=== PATIENT | female | born 1975 | race Caucasian/White ===

== ENCOUNTER 2017-01-27 08:21 | Emergency (ER) | payer BC, MEDICAID ==
[~2017-01-27] VITALS: Ht 167.6 cm; Wt 93.0 kg
[~2017-01-27 08:21] MED LIST: METF-312 PO; PRENCAP61 PO
[2017-01-27 09:00] LABS: Urine Bilirubin Negative (Negative); Urine Color Yellow (Yellow); Urine Glucose Normal (Normal); Urine Ketone Negative (Negative); Urine Mucus FEW (None Seen); Urine Nitrite Negative (Negative); Urine RBC 2 /hpf (0 - 4); Urine Squamous Epithelial Cell FEW /hpf (<5); Urine Urobilinogen Normal (Negative); Urine pH 6.5 (5.0-8.0)
[2017-01-27 09:02] LABS: Urine Blood 1+ /uL (Negative)
[2017-01-27 09:29] LABS: Basophils # (auto) 0.1 uL; Eosinophils # (auto) 0.1 uL; Eosinophils % (auto) 0.7 % (0.0-7.0); Hematocrit 39.4 % (36.0-46.0); Hemoglobin 13.1 g/dL (12.2-16.2); Lymphocytes # (auto) 3.2 uL; Lymphocytes % (auto) 32.8 % (10.0-50.0); Mean Corpuscular Hemoglobin 31.5 pg (28.0-32.0); Mean Corpuscular Hgb Conc. 33.2 g/dL (32.0-36.0); Mean Corpuscular Volume 94.9 fL (80.0-100.0); Mean Platelet Volume 6.7 fL (7.4-10.4); Monocytes # (auto) 0.6 uL; Monocytes % (auto) 6.1 % (0.0-12.0); Neutrophils # (auto) 5.9 uL; Neutrophils % (auto) 59.4 % (37.0-80.0); Platelet Count (auto) 353 10^3/uL (140-450); Red Cell Distribution Width 13.9 % (11.6-16.0); White Blood Cell 9.9 10^3/uL (4.4-10.8)
[2017-01-27] MEDS ORDERED: SODIUM CHLORIDE 0.9% 500 ML IVB ONE (09:40)
[2017-01-27] MEDS ORDERED: ONDANSETRON HCL 4 MG/2 ML VIAL IV ONE (09:45)
[2017-01-27] MEDS ORDERED: MORPHINE SULFATE 4 MG/ML SYRG IV ONE (09:45)
[2017-01-27 09:50] LABS: Albumin 3.5 g/dL (3.4-5.0); Bilirubin, Total 0.3 mg/dL (0.2-1.0); Calcium 8.7 mg/dL (8.5-10.1); Total Protein 7.4 g/dL (6.4-8.2)
[2017-01-27 10:47] VITALS: BP 139/94
== END 2017-01-27 11:08 | disposition home or self-care (01) ==
LOC: ER 08:21
DX: N39.0 Urinary tract infection, site not specified (principal); Z90.49 Acquired absence of other specified parts of digestive tract
CPT/HCPCS: 36415; 74176; 80053; 81001; 81025; 82150; 83690; 84702; 85025; 94761; 96361; 96374; 96375; 99285; J2270; J2405; J7040

== ENCOUNTER → 2017-06-13 | Day surgery (SDC) | payer BC ==
[2017-06-09 14:49] LABS: Basophils # (auto) 0 uL; Basophils % (auto) 0.3 % (0.0-2.0); CONDITION Y; Eosinophils # (auto) 0.1 uL; Eosinophils % (auto) 0.9 % (0.0-7.0); Hemoglobin 12.7 g/dL (12.2-16.2); Lymphocytes # (auto) 4.1 uL; Lymphocytes % (auto) 38.2 % (10.0-50.0); Mean Corpuscular Hemoglobin 32.1 pg (28.0-32.0); Mean Corpuscular Hgb Conc. 34.2 g/dL (32.0-36.0); Mean Corpuscular Volume 93.7 fL (80.0-100.0); Mean Platelet Volume 6.6 fL (6.9-10.8); Monocytes # (auto) 0.6 uL; Monocytes % (auto) 5.7 % (0.0-12.0); Neutrophils % (auto) 54.9 % (37.0-80.0); Platelet Count (auto) 449 10^3/uL (140-450); Red Cell Distribution Width 13.1 % (11.8-14.3); White Blood Cell 10.8 10^3/uL (4.4-10.8)
[2017-06-09 14:55] LABS: BUN/Creatinine Ratio 32.7; Calcium 9.1 mg/dL (8.5-10.1); INR 0.87 (0.9-1.15); Partial Thromboplastin Time 23.9 sec (22.64-33.71); Potassium 3.9 mmol/L (3.5-5.1); Prothrombin Time 9.5 sec (9.37-12.3)
[~2017-06-13] MED LIST changes: +HYDROmorphone HCL 2 MG/ML VL IV PRN; -METF-312 PO; +METOCLOPRAMIDE HCL 5MG/ml INJ 2ml VIAL IV ONE; +MIDAZOLAM HCL 1MG/1ML-2 ML VIAL ONE; -PRENCAP61 PO; +PROPOFOL 10 MG/ML 20 ML IV ONE; +ceFAZolin 1GM/50ML D5W 50 ML IV ONE; +fentaNYL CITRATE 100 MCG/2 ML VL ONE
[2017-06-13 11:22] VITALS: BP 128/88
== END | disposition home or self-care (01) ==
LOC: SUR 07:17
PROVIDERS: ATTEND Urology
DX: N20.0 Calculus of kidney (principal); E66.01 Morbid (severe) obesity due to excess calories; Z90.49 Acquired absence of other specified parts of digestive tract
CPT/HCPCS: 36415; 50590; 80048; 85025; 85610; 85730; 87086; J0690; J2250; J2704; J3010

== ENCOUNTER 2019-02-15 20:54 | Inpatient (IN) | payer SELFPAY ==
[~2019-02-15] VITALS: Ht 160 cm; Wt 89.0 kg
[2019-02-15 23:24] LABS: Basophils # (auto) 0 uL; Basophils % (auto) 0.2 % (0.0-2.0); Eosinophils # (auto) 0.1 uL; Eosinophils % (auto) 0.5 % (0.0-7.0); Hematocrit 32.7 % (36.0-46.0); Lymphocytes # (auto) 1.7 uL; Lymphocytes % (auto) 12.7 % (10.0-50.0); Mean Corpuscular Hemoglobin 29.8 pg (28.0-32.0); Mean Corpuscular Hgb Conc. 33.8 g/dL (32.0-36.0); Mean Corpuscular Volume 88.2 fL (80.0-100.0); Monocytes # (auto) 0.7 uL; Monocytes % (auto) 5.5 % (0.0-12.0); Neutrophils # (auto) 10.9 uL; Neutrophils % (auto) 81.1 % (37.0-80.0); Nucleated Red Blood Cells % 0.1 %; Platelet Count (auto) 338 10^3/uL (140-450); Red Cell Distribution Width 15.7 % (11.8-14.3); White Blood Cell 13.5 10^3/uL (4.4-10.8)
[2019-02-15 23:42] LABS: Albumin 2.3 g/dL (3.4-5.0); Calcium 9.1 mg/dL (8.5-10.1); Potassium 3.5 mmol/L (3.5-5.1)
[2019-02-15 23:46] LABS: BUN/Creatinine Ratio 21.2; Bilirubin, Total 0.3 mg/dL (0.2-1.0); Total Protein 7.5 g/dL (6.4-8.2)
[2019-02-15 23:46] LABS: Urine Bacteria NONE SEEN /hpf (None Seen); Urine Blood 2+ /uL (Negative); Urine Specific Gravity 1.011 (1.001-1.035); Urine WBC 112 /hpf (0 - 5); Urine WBC Clumps PRESENT /hpf (None Seen)
[2019-02-16] MEDS ORDERED: SODIUM CHLORIDE 0.9% 1,000 ML IV ONE ×2 (00:45→07:57)
[2019-02-16] MEDS ORDERED: MORPHINE SULFATE 4 MG/ML SYR/VIAL IV ONE (00:45)
[2019-02-16] MEDS ORDERED: ONDANSETRON HCL 4 MG/2 ML VIAL IV ONE (00:45)
[2019-02-16] MEDS ORDERED: HYDROmorphone HCL 2 MG/ML VL IV ONE (03:30)
[2019-02-16] MEDS ORDERED: SODIUM CHLORIDE 0.9% 500 ML IVB ONE (07:57)
[2019-02-16] MEDS ORDERED: cefTRIAXone 1GM/50ML D5W 50 ML IV ONE (08:00)
[2019-02-16] MEDS ORDERED: KETOROLAC TROMETH 30 MG/ML 1ML VIAL IV ONE (08:15)
[2019-02-16] MEDS ORDERED: SODIUM CHLORIDE 0.9% 1,000 ML IV SCH (13:20)
[2019-02-16] MEDS ORDERED: NITROGLYCERIN 0.4 MG SL TAB SL PRN (13:30)
[2019-02-16] MEDS ORDERED: MORPHINE SULF INJ 2 MG/ML SYRINGE 1ML IV PRN (13:30)
[2019-02-16] MEDS ORDERED: DEXTROSE (50%) 50ML SYRG IV PRN (13:30)
[2019-02-16] MEDS ORDERED: traMADol HCL 50 MG TAB PO PRN (13:30)
[2019-02-16] MEDS ORDERED: TEMAZEPAM 15 MG CAP PO PRN (13:30)
[2019-02-16] MEDS ORDERED: ENOXAPARIN SOD 40 MG/0.4 ML SYRINGE SC ONE (14:00)
--- NOTE | 2019-02-16 14:19 | NUR ---
Telemetry admit from ER AVINASH CANALES admitted to Telemetry unit. Patient oriented to SUSAN LY RN primary RN, unit, room, bed, and unit policies regarding patient care and visiting hours. Patient now on continuous telemetry monitoring. Patient placed on bedside oxygen, weighed by bedscale and encouraged to call if they need something. All questions and concerns addressed, patient verbalized understanding.
[2019-02-16 14:40] VITALS: BP 144/85
[2019-02-16] MEDS: HYDROmorphone HCL 2 MG/ML VL IV PRN ×2 (15:05→20:17)
[2019-02-16] MEDS: SODIUM CHLORIDE 0.9% 1,000 ML IV SCH (15:06)
[2019-02-16 16:07] VITALS: BP 136/84
[2019-02-16] MEDS: ACCU-CHEK COMFORT CURVE STRIP VI SCH (17:48)
[2019-02-16 18:15] VITALS: BP 144/85
--- NOTE | 2019-02-16 18:45 | NUR ---
Re: Urology Consult Urologist called. Reviewed labs and imaging with doctor. to see patient tomorrow.
--- NOTE | 2019-02-16 19:00 | NUR ---
Closing Shift Note Patient is resting in bed. Family at bedside. Patient denies pain and shows no signs or symptoms of distress. Will endorse care to the cath lab nurse RN.
--- NOTE | 2019-02-16 19:05 | NUR ---
Opening Shift Note Assumed care of patient, awake and alert.Family on bedside No S/S of distress/SOB or pain. Instructed on POC and to call for assist PRN, will continue to monitor for changes Q1hr and PRN.
[2019-02-16 20:00] VITALS: BP 132/76
[2019-02-16 21:54] VITALS: BP 132/76
[2019-02-17] MEDS: HYDROmorphone HCL 2 MG/ML VL IV PRN ×5 (00:38→22:05)
[2019-02-17] MEDS: SODIUM CHLORIDE 0.9% 1,000 ML IV SCH ×3 (01:16→20:45)
[2019-02-17 04:58] VITALS: BP 137/81
[2019-02-17 05:43] LABS: Basophils # (auto) 0 uL; Basophils % (auto) 0.3 % (0.0-2.0); Eosinophils # (auto) 0.1 uL; Eosinophils % (auto) 0.6 % (0.0-7.0); Hematocrit 27.9 % (36.0-46.0); Hemoglobin 9.3 g/dL (12.2-16.2); Lymphocytes # (auto) 2.1 uL; Mean Corpuscular Hemoglobin 29.2 pg (28.0-32.0); Mean Corpuscular Hgb Conc. 33.3 g/dL (32.0-36.0); Mean Corpuscular Volume 87.6 fL (80.0-100.0); Monocytes # (auto) 1.3 uL; Monocytes % (auto) 11.1 % (0.0-12.0); Neutrophils # (auto) 8.6 uL; Platelet Count (auto) 287 10^3/uL (140-450); Red Blood Cells 3.18 10^6/uL (4.0-5.20); White Blood Cell 12.1 10^3/uL (4.4-10.8)
[2019-02-17 05:48] LABS: Albumin 1.8 g/dL (3.4-5.0); Potassium 3.3 mmol/L (3.5-5.1)
[2019-02-17] MEDS: PROMETHAZINE HCL 25 MG/ML 1ML IV PRN (05:54)
[2019-02-17 05:55] LABS: BUN/Creatinine Ratio 15.2; Bilirubin, Total 0.3 mg/dL (0.2-1.0); Total Protein 6.1 g/dL (6.4-8.2)
[2019-02-17] MEDS: ACETAMINOPHEN 500 MG TAB PO PRN ×2 (05:55→20:24)
[2019-02-17] MEDS: ACCU-CHEK COMFORT CURVE STRIP VI SCH ×4 (06:00→17:09)
--- NOTE | 2019-02-17 08:10 | NUR ---
Opening Shift Note Assumed care of patient, alert and oriented x 4. No S/S of distress/SOB or chest pain. IV 20g to left AC asymptomatic and intact with NS running at 100 ml/hr. Bed rails up x 2 for safety and call light placed within reach. Instructed on POC and to call for assist PRN, will continue to monitor for changes Q1hr and PRN.
[2019-02-17 08:43] VITALS: BP 129/80
[2019-02-17] MEDS: cefTRIAXone 1GM/50ML D5W 50 ML IV SCH (09:05)
[2019-02-17 10:16] LABS: Hematocrit 30.6 % (36.0-46.0); Hemoglobin 10.1 g/dL (12.2-16.2)
--- NOTE | 2019-02-17 11:15 | NUR ---
ROUNDS Dr Serrano At bedside for rounds, no new orders received at this time. Patient updated on plan of care, verbalized understanding.
[2019-02-17 13:57] VITALS: BP 127/63
[2019-02-17] MEDS: PANTOPRAZOLE 40 MG TAB PO SCH (14:01)
[2019-02-17] MEDS: ENOXAPARIN SOD 40 MG/0.4 ML SYRINGE SC SCH (14:01)
[2019-02-17 15:22] LABS: Hematocrit 28.4 % (36.0-46.0); Hemoglobin 9.4 g/dL (12.2-16.2)
[2019-02-17 17:00] VITALS: BP 161/76
--- NOTE | 2019-02-17 19:13 | NUR ---
Care endorsed to ABBY Christiansen.
[2019-02-17 22:00] VITALS: BP 122/62
[2019-02-17 22:28] LABS: Hematocrit 27.2 % (36.0-46.0); Hemoglobin 8.9 g/dL (12.2-16.2)
[2019-02-18] MEDS: HYDROmorphone HCL 2 MG/ML VL IV PRN ×5 (04:07→22:28)
[2019-02-18] MEDS: ACETAMINOPHEN 500 MG TAB PO PRN ×2 (04:17→17:27)
[2019-02-18 05:00] VITALS: BP 138/83
[2019-02-18] MEDS: ACCU-CHEK COMFORT CURVE STRIP VI SCH ×3 (06:00→12:26)
[2019-02-18 06:13] LABS: Hematocrit 27.4 % (36.0-46.0); Hemoglobin 9.2 g/dL (12.2-16.2); Mean Corpuscular Hemoglobin 29.4 pg (28.0-32.0); Mean Corpuscular Hgb Conc. 33.4 g/dL (32.0-36.0); Mean Corpuscular Volume 87.8 fL (80.0-100.0); Platelet Count (auto) 309 10^3/uL (140-450); Red Blood Cells 3.13 10^6/uL (4.0-5.20); Red Cell Distribution Width 15.7 % (11.8-14.3)
[2019-02-18 06:47] LABS: Blast Cells 0; Eosinophils % (manual) 0 (0-7); Myelocytes % 0; Promyelocytes % 0; Reactive Lymphocytes 0
[2019-02-18 07:48] LABS: Band Neutrophils % (manual) 3; Basophils % (manual) 1 (0.0-2.0); Lymphocytes % (manual) 12 (10.0-50.0); Metamyelocytes % 1; Monocytes % (manual) 11 (0-12)
[2019-02-18 08:00] VITALS: BP 133/79
--- NOTE | 2019-02-18 08:00 | NUR ---
Opening Shift Note Assumed care of patient, awake, alert, and oriented x4. Patient has 7/10 complaints of lower back, abdominal pain at this time, will administer pain medication per order. Patient has IV in left AC 20g running NS at 100mL/hr, patient tolerating well. Patient is on room air with no S/S of distress/SOB. Instructed on POC and to call for assist PRN, will continue to monitor for changes Q1hr and PRN. Bed in lowest locked position, call light within reach.
[2019-02-18 08:10] VITALS: BP 133/79
[2019-02-18 08:36] LABS: BUN/Creatinine Ratio 13.3; Calcium 7.9 mg/dL (8.5-10.1); Potassium 3.4 mmol/L (3.5-5.1)
[2019-02-18] MEDS: cefTRIAXone 1GM/50ML D5W 50 ML IV SCH (08:49)
[2019-02-18] MEDS: ENOXAPARIN SOD 40 MG/0.4 ML SYRINGE SC SCH (08:51)
[2019-02-18] MEDS: PANTOPRAZOLE 40 MG TAB PO SCH (08:51)
[2019-02-18] MEDS: SODIUM CHLORIDE 0.9% 1,000 ML IV SCH (08:55)
[2019-02-18] MEDS: PROMETHAZINE HCL 25 MG/ML 1ML IV PRN (08:58)
[2019-02-18 13:00] VITALS: BP 134/83
--- NOTE | 2019-02-18 14:00 | NUR ---
FIRE MANAGEMENT SPECIALIST AT BEDSIDE SUDEEP ELENA NP AT BEDSIDE. PER MD, PATIENT TO GET COLACE 100MG BID PRN AND DISCONTINUE TELE. ORDERS READ BACK AND VERIFIED.
[2019-02-18] MEDS ORDERED: DOCUSATE SOD 100 MG CAP PO PRN (15:30)
[2019-02-18] MEDS: SOD CHL 0.9%/ KCL 20MEQ 1,000 ML IV SCH (15:59)
[2019-02-18 17:02] VITALS: BP 131/70
--- NOTE | 2019-02-18 18:35 | NUR ---
END OF SHIFT PATIENT RESTING IN BED. NO S/S OF DISTRESS. INSTRUCTED PATIENT TO CALL PRN. BED IN LOWEST LOCKED POSITION, CALL LIGHT WITHIN REACH. ENDORSED CARE TO ABBY KUMAR.
[2019-02-18 22:00] VITALS: BP_SYST 128; BP_SYST 91; BP_DIAS 55; BP_DIAS 73
[2019-02-19] MEDS: SOD CHL 0.9%/ KCL 20MEQ 1,000 ML IV SCH ×3 (04:09→19:34)
[2019-02-19] MEDS: HYDROmorphone HCL 2 MG/ML VL IV PRN ×5 (04:10→20:22)
[2019-02-19 05:55] VITALS: BP 127/77
[2019-02-19 06:16] LABS: Hematocrit 27.8 % (36.0-46.0); Hemoglobin 9.3 g/dL (12.2-16.2); Mean Corpuscular Hemoglobin 29.3 pg (28.0-32.0); Mean Corpuscular Hgb Conc. 33.5 g/dL (32.0-36.0); Mean Corpuscular Volume 87.4 fL (80.0-100.0); Platelet Count (auto) 365 10^3/uL (140-450); Red Blood Cells 3.17 10^6/uL (4.0-5.20); Red Cell Distribution Width 15.5 % (11.8-14.3); White Blood Cell 13.3 10^3/uL (4.4-10.8)
[2019-02-19 06:30] LABS: Calcium 8.4 mg/dL (8.5-10.1); Potassium 3.3 mmol/L (3.5-5.1)
[2019-02-19 06:35] LABS: BUN/Creatinine Ratio 10.3
[2019-02-19 07:16] LABS: Band Neutrophils % (manual) 0; Basophils % (manual) 0 (0.0-2.0); Blast Cells 0; Eosinophils % (manual) 0 (0-7); Metamyelocytes % 0; Myelocytes % 0; Promyelocytes % 0; Reactive Lymphocytes 0
--- NOTE | 2019-02-19 07:55 | NUR ---
OPENING NOTE Assumed care of patient from NOC RNKuldip. Patient awake and alert with no S/S of distress/SOB. C/O abdominal pain 8/10 on adult pain scale, will administer prn pain medication as ordered. Instructed on POC and to call for assist PRN, verbalized understanding. Bed in lowest, locked position with side rails up x2 and call light within reach. Will continue to monitor for changes Q1hr and PRN.
[2019-02-19 08:04] LABS: Lymphocytes % (manual) 25 (10.0-50.0); Monocytes % (manual) 5 (0-12)
[2019-02-19] MEDS: PROMETHAZINE HCL 25 MG/ML 1ML IV PRN (08:11)
[2019-02-19 09:00] VITALS: BP 132/77
[2019-02-19] MEDS: PANTOPRAZOLE 40 MG TAB PO SCH (10:10)
[2019-02-19] MEDS: cefTRIAXone 1GM/50ML D5W 50 ML IV SCH (10:10)
[2019-02-19] MEDS: ENOXAPARIN SOD 40 MG/0.4 ML SYRINGE SC SCH (10:10)
[2019-02-19 13:00] VITALS: BP 134/80
[2019-02-19] MEDS ORDERED: traMADol HCL 50 MG TAB PO PRN (14:45)
[2019-02-19] MEDS ORDERED: POTASSIUM CHL 20 Meq TABLET PO ONE (14:45)
--- NOTE | 2019-02-19 16:30 | NUR ---
IV Obstructed IV removed with catheter intact. New IV access obtained, via clean sterile technique by inserting 22 gauge catheter at left forearm after 3 attempts. IV secured properly. No trauma to site. Patient tolerated well.
[2019-02-19 17:00] VITALS: BP 136/76
--- NOTE | 2019-02-19 19:18 | NUR ---
Opening Shift Note Assumed care of patient, awake and alert. No S/S of distress/SOB or pain. Pt is currently in bed with the rails up x2, bed is locked in the lowest position and the call light is within reach. Instructed on POC and to call for assist as needed. All concerns were addressed. Will continue to monitor.
--- NOTE | 2019-02-19 19:20 | NUR ---
CLOSING NOTE Endorsed care of patient to NOC Jim MORA.
[2019-02-19 22:00] VITALS: BP 135/79
[2019-02-20] MEDS: HYDROmorphone HCL 2 MG/ML VL IV PRN ×6 (00:13→22:07)
[2019-02-20 05:00] VITALS: BP 137/78
[2019-02-20 06:02] LABS: BUN/Creatinine Ratio 12.3; Calcium 8.6 mg/dL (8.5-10.1); Magnesium 1.7 mg/dL (1.6-2.6); Potassium 3.6 mmol/L (3.5-5.1)
[2019-02-20] MEDS: SOD CHL 0.9%/ KCL 20MEQ 1,000 ML IV SCH ×2 (06:13→15:08)
[2019-02-20 06:30] LABS: Hematocrit 30.3 % (36.0-46.0); Hemoglobin 9.9 g/dL (12.2-16.2); Mean Corpuscular Hemoglobin 28.7 pg (28.0-32.0); Mean Corpuscular Hgb Conc. 32.7 g/dL (32.0-36.0); Platelet Count (auto) 466 10^3/uL (140-450); Red Blood Cells 3.44 10^6/uL (4.0-5.20); Red Cell Distribution Width 15.6 % (11.8-14.3); White Blood Cell 15.4 10^3/uL (4.4-10.8)
[2019-02-20 06:32] LABS: Basophils % (manual) 0 (0.0-2.0); Blast Cells 0; Eosinophils % (manual) 0 (0-7); Metamyelocytes % 0; Myelocytes % 0; Promyelocytes % 0; Reactive Lymphocytes 0
--- NOTE | 2019-02-20 07:25 | NUR ---
Opening Shift Note Assumed care of patient, currently sleeping, easily awakened via verbal and tactile stimuli, breathing even and unlabored. No S/S of distress/SOB or pain reported at this time. Instructed on POC and to call for assist PRN, call light within reach and bed alarm on. will continue to monitor for changes Q1hr and PRN.
[2019-02-20 08:00] VITALS: BP 132/86
[2019-02-20 08:16] LABS: Band Neutrophils % (manual) 2; Lymphocytes % (manual) 20 (10.0-50.0); Monocytes % (manual) 9 (0-12)
[2019-02-20] MEDS: PANTOPRAZOLE 40 MG TAB PO SCH (08:51)
[2019-02-20] MEDS: cefTRIAXone 1GM/50ML D5W 50 ML IV SCH (08:51)
[2019-02-20] MEDS: ENOXAPARIN SOD 40 MG/0.4 ML SYRINGE SC SCH (08:51)
[2019-02-20] MEDS: ACETAMINOPHEN 500 MG TAB PO PRN (08:57)
[2019-02-20] MEDS ORDERED: SUCCINYLCHOLINE CHLORIDE 20 MG/ML 10ML VIAL IV ONE (09:44)
[2019-02-20] MEDS ORDERED: DOXAPRAM HCL 20 MG/ML 20ML VIAL INJ IV ONE (09:44)
[2019-02-20 12:00] VITALS: BP 129/78
--- NOTE | 2019-02-20 12:31 | NUR ---
AT BEDSIDE DR JANG AT BEDSIDE, DISCUSSING POC WITH PT AND FAMILY
--- NOTE | 2019-02-20 12:38 | NUR ---
Nutrition Assessment Notes please see attached link for complete assessment Est. Needs ABW [id number] kcal (20-23 kcal/kgBW), 70-84 gms pro (1.0-1.2 gms/kgBW r/t severe hypoalbuminemia). Will continue to monitor pertinent labs and reassess nutrient need prn. Addendum: 02/20/19 at [address] Amended: Links added.
[2019-02-20] MEDS ORDERED: MAGNESIUM SULFATE 1GM/100ML 100 ML IV ONE (13:15)
[2019-02-20 16:00] VITALS: BP 117/72
--- NOTE | 2019-02-20 18:00 | NUR ---
FAMILY AT BEDSIDE PT AWAKE AXOX4, , NO DISTRESS NOTED, CONT CARE
--- NOTE | 2019-02-20 20:00 | NUR ---
Opening Note Assumed pt care from day shift nurse. Pt is sitting upright in bed with no s/s of distress or SOB. Discussed POc with pt. Safety measures maintained with side rails up, bed in lowest position and call light within reach. Will continue to monitor for changes q1hr and PRN.
[2019-02-20 22:00] VITALS: BP 151/80
[2019-02-21] MEDS: SOD CHL 0.9%/ KCL 20MEQ 1,000 ML IV SCH ×2 (02:35→12:25)
[2019-02-21 04:52] VITALS: BP 129/77
[2019-02-21 06:22] LABS: Hemoglobin 10.1 g/dL (12.2-16.2)
[2019-02-21 06:25] LABS: Mean Corpuscular Hemoglobin 29.4 pg (28.0-32.0); Mean Corpuscular Hgb Conc. 33.5 g/dL (32.0-36.0); Mean Corpuscular Volume 87.8 fL (80.0-100.0); Red Blood Cells 3.42 10^6/uL (4.0-5.20); Red Cell Distribution Width 15.4 % (11.8-14.3); White Blood Cell 14.7 10^3/uL (4.4-10.8)
[2019-02-21 06:35] LABS: Potassium 3.9 mmol/L (3.5-5.1)
[2019-02-21 06:42] LABS: Basophils % (manual) 0 (0.0-2.0); Blast Cells 0; Eosinophils % (manual) 0 (0-7); Metamyelocytes % 0; Myelocytes % 0; Promyelocytes % 0; Reactive Lymphocytes 0
--- NOTE | 2019-02-21 07:52 | NUR ---
Assumed care of pt, awake and alert, no s&s of distress/sob, reports left flank pain (see pain med administration data), instructed on poc and to call for assist prn, will continue to monitor for changes q1h and prn.
[2019-02-21 08:00] VITALS: BP 133/84
[2019-02-21] MEDS: HYDROmorphone HCL 2 MG/ML VL IV PRN ×4 (08:02→21:22)
[2019-02-21 08:33] LABS: Band Neutrophils % (manual) 2; Lymphocytes % (manual) 14 (10.0-50.0); Monocytes % (manual) 8 (0-12)
[2019-02-21 08:43] LABS: Platelet Count (auto) 521 10^3/uL (140-450)
[2019-02-21] MEDS: cefTRIAXone 1GM/50ML D5W 50 ML IV SCH (09:53)
[2019-02-21] MEDS: PANTOPRAZOLE 40 MG TAB PO SCH (09:54)
[2019-02-21] MEDS: Pro-Stat SF 30ml Vanilla PO SCH (09:54)
[2019-02-21] MEDS: ENOXAPARIN SOD 40 MG/0.4 ML SYRINGE SC SCH (09:54)
[2019-02-21 12:00] VITALS: BP 121/81
--- NOTE | 2019-02-21 12:15 | NUR ---
Pt awake and alert, no s&s of distress/sob or pain noted, will continue to monitor for changes q1h and prn.
--- NOTE | 2019-02-21 15:39 | NUR ---
Pt awake and alert, no s&s of distress/sob or pain noted, will continue to monitor for changes q1h and prn.
[2019-02-21 16:44] VITALS: BP 129/84
--- NOTE | 2019-02-21 20:00 | NUR ---
REPORT GIVEN BY ABBY LOPEZ, ASSUMED CARE, PT. AWAKE, NO C/O PAIN, NO SOB.
[2019-02-21 22:09] VITALS: BP 125/76
[2019-02-22] VITALS (7 sets, daily range): BP systolic 111–128; BP diastolic 71–77
[2019-02-22] MEDS: SOD CHL 0.9%/ KCL 20MEQ 1,000 ML IV SCH ×2 (01:18→06:32)
[2019-02-22] MEDS: HYDROmorphone HCL 2 MG/ML VL IV PRN ×4 (01:35→21:22)
[2019-02-22 06:33] LABS: Hematocrit 31.7 % (36.0-46.0); Hemoglobin 10.6 g/dL (12.2-16.2); Mean Corpuscular Hemoglobin 29.7 pg (28.0-32.0); Mean Corpuscular Hgb Conc. 33.5 g/dL (32.0-36.0); Mean Corpuscular Volume 88.6 fL (80.0-100.0); Platelet Count (auto) 610 10^3/uL (140-450); Red Blood Cells 3.58 10^6/uL (4.0-5.20); Red Cell Distribution Width 15.3 % (11.8-14.3); White Blood Cell 13.7 10^3/uL (4.4-10.8)
[2019-02-22 06:44] LABS: Band Neutrophils % (manual) 0; Basophils % (manual) 0 (0.0-2.0); Blast Cells 0; Eosinophils % (manual) 0 (0-7); Metamyelocytes % 0; Myelocytes % 0; Promyelocytes % 0; Reactive Lymphocytes 0
--- NOTE | 2019-02-22 07:12 | NUR ---
Opening Shift Note Assumed care of patient. Pt awake, alert and oriented x4. No S/S of distress or SOB. Pt denies any pain at this time. Bed in lowest locked position with side rails up x2. Instructed on POC and to call for assist PRN, will continue to monitor for changes Q1hr and PRN.
[2019-02-22 07:33] LABS: Lymphocytes % (manual) 26 (10.0-50.0); Monocytes % (manual) 7 (0-12)
[2019-02-22] MEDS: cefTRIAXone 1GM/50ML D5W 50 ML IV SCH (08:56)
[2019-02-22] MEDS: ENOXAPARIN SOD 40 MG/0.4 ML SYRINGE SC SCH (09:03)
[2019-02-22] MEDS: PANTOPRAZOLE 40 MG TAB PO SCH (09:03)
[2019-02-22] MEDS: Pro-Stat SF 30ml Vanilla PO SCH (09:13)
[2019-02-22] MEDS ORDERED: traMADol HCL 50 MG TAB PO PRN (12:15)
--- NOTE | 2019-02-22 15:35 | NUR ---
PT REPORTED SWELLING AND PAIN TO LT FOREARM IV, IV IV DC'd WITH CLEAN STERILE TECHNIQUE, CATHETER FULLY INTACT, PRESSURE DRESSING APPLIED TO SITE, PT TOLERATED WELL. NEW IV OBTAINED VIA CLEAN STERILE TECHNIQUE BY INSERTING A 22 GAUGE TO RT FOREARM, IV SECURED PROPERLY. PT TOLERATED WELL.
--- NOTE | 2019-02-22 19:15 | NUR ---
Closing Shift Note Patient, awake and alert, resting in bed. No S/S of distress or SOB. Bed in lowest and locked position with side rails up x2. Will endorse care to custodial foreman RN.
--- NOTE | 2019-02-22 19:20 | NUR ---
Opening Shift Note Received report from day shift RN. Assumed care of patient. Patient awake and alert with visitor at bed side. No S/S of distress/SOB or pain. Instructed on POC and to call for assist PRN, will continue to monitor PRN.
[2019-02-22] MEDS: PROMETHAZINE HCL 25 MG/ML 1ML IV PRN (21:22)
[2019-02-23 05:00] VITALS: BP 121/80
[2019-02-23] MEDS: SOD CHL 0.9%/ KCL 20MEQ 1,000 ML IV SCH ×2 (06:08→20:03)
[2019-02-23] MEDS: PROMETHAZINE HCL 25 MG/ML 1ML IV PRN (06:12)
[2019-02-23] MEDS: HYDROmorphone HCL 2 MG/ML VL IV PRN ×3 (06:13→22:42)
--- NOTE | 2019-02-23 06:20 | NUR ---
ROUNDS PATIENT RESTING IN BED, PATIENT VERBALIZED PAIN A 7/10 LOCALIZED TO HER ABDOMEN. WILL MEDICATE AND REASSESS PAIN LEVEL.
[2019-02-23 07:00] LABS: Basophils # (auto) 0.1 uL; Eosinophils # (auto) 0.1 uL; Hemoglobin 10.8 g/dL (12.2-16.2); Monocytes # (auto) 0.7 uL
[2019-02-23 07:01] LABS: Basophils % (auto) 0.6 % (0.0-2.0); Eosinophils % (auto) 0.7 % (0.0-7.0); Hematocrit 32.5 % (36.0-46.0); Lymphocytes # (auto) 2.7 uL; Lymphocytes % (auto) 20.3 % (10.0-50.0); Mean Corpuscular Hemoglobin 29.2 pg (28.0-32.0); Mean Corpuscular Hgb Conc. 33.2 g/dL (32.0-36.0); Monocytes % (auto) 4.9 % (0.0-12.0); Neutrophils # (auto) 9.8 uL; Neutrophils % (auto) 73.5 % (37.0-80.0); Nucleated Red Blood Cells % 0.1 %; Red Blood Cells 3.69 10^6/uL (4.0-5.20); Red Cell Distribution Width 15.2 % (11.8-14.3); White Blood Cell 13.4 10^3/uL (4.4-10.8)
[2019-02-23 07:21] LABS: Platelet Count (auto) 672 10^3/uL (140-450)
--- NOTE | 2019-02-23 07:50 | NUR ---
Opening Shift Note Assumed care of patient, Pt sitting in bed awake and alert. No S/S of distress or SOB. Pt denies any pain at this time. Bed in lowest and locked position with side rails up x2. Instructed on POC and to call for assist PRN, will continue to monitor for changes Q1hr and PRN.
[2019-02-23 08:22] VITALS: BP 126/74
[2019-02-23 09:00] VITALS: BP_SYST 111; BP_SYST 146; BP_SYST 159; BP_DIAS 67; BP_DIAS 74; BP_DIAS 91
[2019-02-23] MEDS: PANTOPRAZOLE 40 MG TAB PO SCH (09:35)
[2019-02-23] MEDS: cefTRIAXone 1GM/50ML D5W 50 ML IV SCH (09:35)
[2019-02-23] MEDS: ENOXAPARIN SOD 40 MG/0.4 ML SYRINGE SC SCH (09:35)
[2019-02-23] MEDS: Pro-Stat SF 30ml Vanilla PO SCH (09:36)
--- NOTE | 2019-02-23 11:40 | NUR ---
Nutrition Follow-up Notes Wt.: 88.7 kg Pt was sleeping with no family by bedside. per records pt with renal colic and to have ESBL on 02/25. pt with no distress noted per nursing. pt is currently on 2 gm na diet along with prostat 1 packet daily with adequate PO of > 75% x 6 per RN doc Est. Needs ABW [id number] kcal (20-23 kcal/kgBW), 70-84 gms pro (1.0-1.2 gms/kgBW r/t severe hypoalbuminemia). Will continue to monitor pertinent labs and reassess nutrient need prn. Labs: No new labs today GLU 152 H 02/20 Skin: Chung scale 22, low risk skin intact per RN doc GI: Pt had 1 BM yesterday per patient financial representative. PES: Decreased nurteint needs r/t adiposity aeb pt`s high BMI of 35.0 kgm2 Altered nutrition related lab values r/t current/chronic medical condition aeb hyperglycemia, severe hypoalb Will continue to monitor PO intake, skin status, pertinent labs and weight trend. F/u in 3-5 days. Rec.: 1.) refer to [facility] dietitian on DC. 2) continue current plan of care
[2019-02-23 13:00] VITALS: BP 132/66
--- NOTE | 2019-02-23 19:16 | NUR ---
Closing Shift Note Patient, awake and alert, resting in bed. No S/S of distress or SOB. Bed in lowest and locked position with side rails up x2. Will endorse care to briquette maker RN.
--- NOTE | 2019-02-23 19:35 | NUR ---
assumed care, pt. awake, no c/o pain, relative at bedside, no sob.
[2019-02-23] MEDS: TEMAZEPAM 15 MG CAP PO PRN (21:02)
[2019-02-23 21:27] VITALS: BP 112/76
[2019-02-24 04:53] VITALS: BP 123/74
--- NOTE | 2019-02-24 07:30 | NUR ---
Opening Shift Note Assumed care of patient, awake and alert. No S/S of distress/SOB or pain. Instructed on POC and to call for assist PRN, will continue to monitor for changes Q1hr and PRN. Bed in low and locked position, rails up x2, no-slip socks on.
[2019-02-24 08:00] VITALS: BP 116/72
[2019-02-24] MEDS: ENOXAPARIN SOD 40 MG/0.4 ML SYRINGE SC SCH (08:50)
[2019-02-24] MEDS: PANTOPRAZOLE 40 MG TAB PO SCH (08:50)
[2019-02-24] MEDS: HYDROmorphone HCL 2 MG/ML VL IV PRN ×4 (08:51→23:56)
[2019-02-24] MEDS: cefTRIAXone 1GM/50ML D5W 50 ML IV SCH (08:51)
[2019-02-24] MEDS: Pro-Stat SF 30ml Vanilla PO SCH (09:29)
[2019-02-24] MEDS: SOD CHL 0.9%/ KCL 20MEQ 1,000 ML IV SCH (10:01)
--- NOTE | 2019-02-24 11:24 | NUR ---
DR ROWE AT BEDSIDE NO NEW ORDERS, AWAITING PROCEDURE TOMORROW
[2019-02-24 12:00] VITALS: BP 115/71
[2019-02-24 16:00] VITALS: BP 111/78
[2019-02-24 18:17] LABS: INR 0.89 (0.9-1.15); Partial Thromboplastin Time 24.2 sec (23.64-32.05)
--- NOTE | 2019-02-24 19:45 | NUR ---
assumed care, pt. awake, relatives at bedside, advised pt. npo after mn, for procedure in am, no c/o pain, no sob
[2019-02-24 22:00] VITALS: BP 112/70
[2019-02-25] MEDS: SOD CHL 0.9%/ KCL 20MEQ 1,000 ML IV SCH ×2 (00:57→15:06)
[2019-02-25] MEDS: TEMAZEPAM 15 MG CAP PO PRN (01:03)
[2019-02-25 05:00] VITALS: BP 115/74
--- NOTE | 2019-02-25 07:00 | NUR ---
Opening Shift Note Assumed care of patient, awake and alert. No S/S of distress/SOB or pain. Instructed on POC and to call for assist PRN, will continue to monitor for changes Q1hr and PRN.
[2019-02-25] MEDS: PANTOPRAZOLE 40 MG TAB PO SCH (08:43)
[2019-02-25] MEDS: cefTRIAXone 1GM/50ML D5W 50 ML IV SCH (08:44)
[2019-02-25] MEDS: Pro-Stat SF 30ml Vanilla PO SCH (08:46)
[2019-02-25] MEDS: ENOXAPARIN SOD 40 MG/0.4 ML SYRINGE SC SCH (08:47)
[2019-02-25 09:00] VITALS: BP 96/75
--- NOTE | 2019-02-25 10:22 | NUR ---
assessment Patient is a 43 year old female who is alert and oriented. Prior to admission patient lived home with family and functioned independently. Patients PCP is Dr Koch. Patient informed me she will have help on discharge. Patient has no discharge needs at this time. Addendum: 02/27/19 at 1028 by Lynn KWON Amended: Links added.
--- NOTE | 2019-02-25 12:15 | NUR ---
Patient in OR for cystoscopy.
[2019-02-25 13:00] VITALS: BP 115/76
[2019-02-25] MEDS ORDERED: ceFAZolin 1GM/50ML 50 ML IV ONE (14:27)
[2019-02-25] MEDS ORDERED: MIDAZOLAM HCL 1MG/1ML-2 ML VIAL ONE (14:39)
[2019-02-25] MEDS ORDERED: fentaNYL CITRATE 100 MCG/2 ML VL ONE (14:39)
[2019-02-25] MEDS ORDERED: PROPOFOL 10 MG/ML 20 ML IV ONE (14:39)
[2019-02-25] MEDS ORDERED: IOHEXOL 300 MG/ML 100ML BOTTLE IJ ONE (14:41)
[2019-02-25] MEDS ORDERED: MANNITOL FTV 25% 12.5 GM/50 ML 50 ML IV ONE (16:00)
[2019-02-25] MEDS ORDERED: MEPERIDINE HCL (25 MG/ML) 1ML VIAL ONE (16:07)
[2019-02-25] MEDS ORDERED: ONDANSETRON HCL 4 MG/2 ML VIAL ONE (16:08)
[2019-02-25] MEDS ORDERED: MORPHINE SULFATE 4 MG/ML SYR/VIAL IV PRN (16:15)
[2019-02-25] MEDS ORDERED: ONDANSETRON HCL 4 MG/2 ML VIAL IM ONE (16:15)
[2019-02-25] MEDS ORDERED: MEPERIDINE HCL (25 MG/ML) 1ML VIAL IV PRN (16:15)
[2019-02-25 17:01] VITALS: BP 114/76
[2019-02-25] MEDS: KETOROLAC TROMETH 30 MG/ML 1ML VIAL IV PRN (17:27)
[2019-02-25] MEDS: ACETAMINOPHEN 500 MG TAB PO PRN (18:32)
--- NOTE | 2019-02-25 19:10 | NUR ---
ASSUMED CARE, PT. AWAKE, RELATIVE AT BEDSIDE, NO SOB.
[2019-02-25 22:00] VITALS: BP 125/72
[2019-02-26] MEDS: TEMAZEPAM 15 MG CAP PO PRN (01:40)
[2019-02-26 05:41] VITALS: BP 110/66
--- NOTE | 2019-02-26 07:00 | NUR ---
Opening Shift Note Assumed care of patient, awake and alert. No S/S of distress/SOB.Patient is having back pain 5/10. Instructed on POC and to call for assist PRN, will continue to monitor for changes Q1hr and PRN.
[2019-02-26] MEDS: KETOROLAC TROMETH 30 MG/ML 1ML VIAL IV PRN (07:43)
[2019-02-26 08:30] VITALS: BP 126/75
[2019-02-26] MEDS: PANTOPRAZOLE 40 MG TAB PO SCH (09:14)
[2019-02-26] MEDS: cefTRIAXone 1GM/50ML D5W 50 ML IV SCH (09:14)
[2019-02-26] MEDS: Pro-Stat SF 30ml Vanilla PO SCH (09:14)
--- NOTE | 2019-02-26 13:37 | NUR ---
Discharge instructions given as ordered. Encourage to follow up with PMD as instructed. All questions and concerns addressed. Patient verbalized understanding. Medication reconciliation form completed and copy given to patient. IV removed with catheter intact, pressure dressing applied. accompanied by staff and family member. No distress noted at time of departure.
== END 2019-02-26 13:52 | disposition home or self-care (01) | DRG 871 ==
LOC: ER 20:57 → TELE 02-16 13:24 → TELE-WESTW 02-16 14:46 → WEST WING 02-18 15:44
PROVIDERS: ADMIT Internal Medicine; ATTEND Internal Medicine
PROC: 0TF4XZZ Fragmentation in Left Kidney Pelvis, External Approach (ICD-10-PCS; principal; 2019-02-25 14:48)
DX: A41.51 Sepsis due to Escherichia coli [E. coli] (principal); J18.1 Lobar pneumonia, unspecified organism; E43 Unspecified severe protein-calorie malnutrition; N13.6 Pyonephrosis; B96.20 Unspecified Escherichia coli [E. coli] as the cause of diseases classified elsewhere; E66.9 Obesity, unspecified; E87.6 Hypokalemia; K57.90 Diverticulosis of intestine, part unspecified, without perforation or abscess without bleeding; N18.3 Chronic kidney disease, stage 3 (moderate); Z83.3 Family history of diabetes mellitus; Z90.49 Acquired absence of other specified parts of digestive tract; Z68.34 Body mass index [BMI] 34.0-34.9, adult; Z84.1 Family history of disorders of kidney and ureter
CPT/HCPCS: 36415; 71046; 74176; 76775; 80048; 80053; 81001; 82360; 82962; 83036; 83690; 83735; 84132; 84702; 85007; 85014; 85018; 85025; 85027; 85610; 85730; 86850; 86900; 86901; 87040; 87086; 87088; 87186; 96365; 96366; 96372; G0378; J0330; J0690; J0696; J1885; J2250; J2405; J2704

== ENCOUNTER 2022-11-06 23:00 | Emergency (ER) | payer SELFPAY ==
[~2022-11-06] VITALS: Ht 167.6 cm; Wt 86.3 kg
[2022-11-06 23:47] VITALS: BP 94/67
[2022-11-07 00:05] LABS: Urine Bacteria NONE SEEN /hpf (None Seen); Urine Blood 3+ /uL (Negative); Urine WBC 94 /hpf (0 - 5)
[2022-11-07 00:26] LABS: Hemoglobin 10.5 g/dL (12.2-16.2); Mean Corpuscular Hemoglobin 25.4 pg (28.0-32.0); White Blood Cell 18.7 10^3/uL (4.4-10.8)
[2022-11-07 00:28] LABS: Basophils # (auto) 0.1 10 ^3/uL (0-0.2); Basophils % (auto) 0.3 % (0.0-2.0); Eosinophils # (auto) 0 10 ^3/uL (0-0.8); Eosinophils % (auto) 0.1 % (0.0-7.0); Hematocrit 33.4 % (36.0-46.0); Lymphocytes # (auto) 1.7 10 ^3/uL (0.4-5.4); Lymphocytes % (auto) 8.9 % (10.0-50.0); Mean Corpuscular Hgb Conc. 31.4 g/dL (32.0-36.0); Mean Corpuscular Volume 80.9 fL (80.0-100.0); Monocytes # (auto) 0.8 10 ^3/uL (0-1.3); Monocytes % (auto) 4.5 % (0.0-12.0); Neutrophils # (auto) 16.1 10 ^3/uL (1.6-8.6); Neutrophils % (auto) 86.2 % (37.0-80.0); Red Blood Cells 4.13 10^6/uL (4.0-5.20)
[2022-11-07 00:43] LABS: Albumin 3.7 g/dL (3.4-5.0); BUN/Creatinine Ratio 15.2; Calcium 9.3 mg/dL (8.5-10.1); Potassium 3.9 mmol/L (3.5-5.1)
[2022-11-07 00:46] LABS: Bilirubin, Total 0.3 mg/dL (0.2-1.0); Total Protein 7.8 g/dL (6.4-8.2)
== END 2022-11-07 05:51 | disposition left against medical advice (07) ==
LOC: ER 23:00
DX: R10.31 Right lower quadrant pain (principal); R11.2 Nausea with vomiting, unspecified; Z87.442 Personal history of urinary calculi; Z53.21 Procedure and treatment not carried out due to patient leaving prior to being seen by health care provider
CPT/HCPCS: 36415; 80053; 81001; 81025; 83690; 85025